=== PATIENT | female | born 1990 | race Two or more races ===

== ENCOUNTER 2025-01-14 22:43 | Emergency (ER) | payer MEDICAID, SELFPAY ==
[2025-01-14 22:43] VITALS: BMI 29.2
[2025-01-14 23:03] VITALS: BP 129/75; PULSE 92; RESP 18; TEMP 36.9; O2SAT 98
--- NOTE | 2025-01-14 23:57 | EDNOTE_ITS ---
Upper Respiratory Inf. RME/HPI General Chief Complaint: Flu Like Symptoms Stated Complaint: COUGH, WHEEZING X1 WEEK Time Seen by Provider: 01/14/25 23:36 Arrival date/time: 01/14/25 22:43 34-year-old female presents to the ED with a complaint of cough with phlegm, unknown color, fever of 100.0 and chills, runny nose and nasal congestion as well as sore throat and pain in her chest with coughing. Symptoms x 1 week. Denies ear pain or sinus pressure/tenderness. She has had a frontal type headache with coughing. Mode of arrival: ambulatory Limitations: no limitations Related Data Home Medications ?Medication ?Instructions ?Recorded ?Confirmed prenat.vits,peg,[id number] 1 tab PO QDAY 05/18/22 02/07/24 albuterol 90 mcg/actuation aerosol 90 mcg inhalation P RN PRN 01/04/24 02/07/24 inhaler Shortness Of Breath Or Wheez ing metformin 500 mg tablet 500 mg PO BID 01/04/2402/06 Previous Rx's ?Medication ?Instructions ?Recorded albuterol sulfate 90 mcg/actuation 2 puff inhalation Q 4H PRN 01/15/25 aerosol inhaler shortness of breath or wheez ing #8.5 grams cetirizine 10 mg tablet (Zyrtec) 10 mg PO QDAY #30 tab s 01/15/25 guaifenesin 1,200 mg tablet, 1,200 mg PO BID #14 tabs 01/15/25 extended release 12 hr (Mucinex) montelukast 10 mg tablet 10 mg PO QPM #30 tabs (Singulair) Allergies Allergy/AdvReac Type Severity Reaction Status Date / Time No Known Allergies Allergy Unknown Verified 02/07/24 01:58 Review of Systems Review of Systems Systems Reviewed: All systems reviewed, normal except as documented Past Medical History Past Medical History NEUROLOGIC: Negative Neurological Disorders or Seizures CARDIAC: Negative Cardiac Disorders or Congestive Heart Failure RESPIRATORY: Positive Asthma (Last inhaler use 6 mos ago); Negative Chronic Obstructive Pulmonary Disease (COPD) GASTROINTESTINAL: Positive Gastrointestinal Disorders, Gall Bladder Disease, Hiatal Hernia and Gastroesophageal Reflux Disease GENITOURINARY: Negative Genitourinary Disorders or Renal Disease REPRODUCTIVE: Positive Previous Pregnancies MUSCULOSKELETAL: Negative Musculoskeletal Disorders ENDOCRINE: Negative Endocrine Disorders, Diabetes Mellitus Type 1 or Diabetes Mellitus Type 2 HEMATOLOGIC: Positive Blood Disorders and Anemia; Negative Clotting Problems OTHER HISTORY: Positive Hospitalization (LABOR, GALL BLADDER) and Chicken Pox; Negative Autoimmune Disease, Shingles, Falls, Blood Transfusions, Blood Transfusion Reaction, Anesthesia Reactions, Chemotherapy, Radiation Therapy, MRSA, Clostridium Difficile or Cancer Family History FAMILY HISTORY: Positive Family Respiratory Disorders (MOTHER ASTHMA), Family Gastrointestinal Problems (MOTHER) and Family Surgery; Negative Family Psychiatric Problems, Family Cardiac Disorders, Family Cancer or Family Anesthesia Reaction Surgical History SURGICAL: Negative Cardiac Surgery, Endocrine Surgery, Ear Surgery, Abdominal Surgery, Joint Replacement, Neurologic Surgery or Section Social History SMOKING STATUS: Never smoker ED Exam Narrative Physical exam: Vital signs stable with a BP 129/75, pulse 92, respirations 18 and nonlabored, temp 98.4, O2 sat 98% on room air. General Limitations: Present no limitations General appearance: Present alert and in no apparent distress Head Head exam: Present atraumatic and normal inspection Eye Eye exam: Present normal appearance; Absent scleral icterus or conjunctival injection ENT ENT exam: Present normal exam Neck Neck exam: Present normal inspection Chest Chest inspection: Present normal inspection Respiratory Respiratory exam: Present other (Rhonchi noted throughout. Diminished at bases.); Absent respiratory distress Cardiovascular Cardiovascular exam: Present regular rate and normal rhythm Abdominal Exam Abdominal exam: Present soft; Absent distention or tenderness Extremities Exam Extremities exam: Present normal inspection Back Exam Back exam: Present full ROM Neurological Exam Neurological exam: Present alert and oriented X3 Psychiatric Psychiatric exam: Present normal affect and normal mood Skin Skin exam: Present warm, dry, intact and normal color Course Course Course Narrative: 34-year-old female presents to the ED with a complaint of cough with phlegm, unknown color, fever of 100.0 and chills, runny nose and nasal congestion as well as sore throat and pain in her chest with coughing. Symptoms x 1 week. Denies ear pain or sinus pressure/tenderness. She has had a frontal type headache with coughing. Exam reveals rhonchi noted throughout, diminished at the bases. Duoneb given. Covid, RSV, Influenza A/B swabs ordered. Quality Measures none Orders Category Date Time Status Bedside COVID-19 Antigen Test NOW Care 01/14/25 23:57 Completed Bedside Influenza A&B Antigen Test NOW Care 01/14/25 23:57 Completed RSV [Respiratory Syncytial Virus Ag] Stat Lab 01/14/25 00:00 Completed Albuterol/Ipratr Rt Catia [Duoneb Rt Catia] Med 01/15/25 01:47 Discontinued 3 ml INH X1 ONE Vital Signs Vital signs: Vital Signs Temperature 98.4 F 01/14/25 23:03 Pulse Rate 92 01/14/25 23:03 Respiratory Rate 18 01/14/25 23:03 Blood Pressure 129/75 01/14/25 23:03 Pulse Oximetry (%) 98 01/14/25 23:03 Oxygen Delivery Method Room Air 01/14/25 23:03 Upper Respiratory Infection MDM Narrative MDM Narrative:: 34-year-old female presents to the ED with a complaint of cough with phlegm, unknown color, fever of 100.0 and chills, runny nose and nasal congestion as well as sore throat and pain in her chest with coughing. Symptoms x 1 week. Denies ear pain or sinus pressure/tenderness. She has had a frontal type headache with coughing. Exam reveals rhonchi noted throughout, diminished at the bases. Duoneb given. Covid, RSV, Influenza A/B swabs ordered. COVID swab is negative, influenza A/B are both positive. Patient data External records reviewed:: None Clinical information provided by:: patient Social determinants that could affect healthcare access:: none Patient has the following chronic illnesses:: N/A How is presenting disease/condition affected by chronic disease/condition?: no chronic disease Evaluation data The following diagnostics were reviewed and interpreted by me:: lab results Lab and/or radiology exams considered but not ordered:: N/A Interpretation Summary: COVID swab is negative, influenza A/B are both positive. Medications / Prescriptions Medications or Prescriptions considered but not ordered:: N/A Medication administrations:: Medication Administration History Discontinued Medications Albuterol/Ipratropium (Albuterol/Ipratropium (Duoneb) Rt Catia 3 Ml Nebu) 3 ml INH X1 ONE Stop: 01/15/25 01:48 Last Admin: 01/15/25 02:12 Dose: 3 ml Documented By: AMBER Montoya Consultations Consultation(s) initiated? (list below): No Diagnosis Upper Respiratory Differential Diagnosis: upper respiratory infection, sinusitis, viral infection, bronchitis, influenza and other (Pneumonia) Most likely diagnosis given after review of the tests above:: Influenza A/B Admission Indicated Admission indicated?: not indicated Explain why admission is indicated or not indicated:: Patient is stable for discharge Admission Request Was there a request for admission?: No Disposition Plan Disposition Plan: Discharge Discharge Attestation Discharge Attestation: The patient and all family members were given an opportunity to ask questions and understood the discharge instructions. Discharge instructions specifically effects, indications for sooner follow up or return to the emergency department, and the expected course of current diagnosis. Patient condition: Stable Discharge Plan Plan Patient Disposition: HOME (Self Care) Discharge Disposition comment: Stable and improved Prescriptions/Referrals Prescriptions/Med Rec: New albuterol sulfate 90 mcg/actuation HFA aerosol inhaler 2 puff inhalation Q4H PRN (Reason: shortness of breath or wheezing) Qty: 8.5 0RF guaifenesin [Mucinex] 1,200 mg tablet extended release 12hr 1,200 mg PO BID Qty: 14 0RF montelukast [Singulair] 10 mg tablet 10 mg PO QPM Qty: 30 0RF cetirizine [Zyrtec] 10 mg tablet 10 mg PO QDAY Qty: 30 0RF No Action Vitamin Tablet 1 tab PO QDAY metformin 500 mg Tablet 500 mg PO BID albuterol 90 mcg/actuation Aerosol 90 mcg INHALATION PRN PRN (Reason: Shortness Of Breath Or Wheezing) Referrals: Gus Adams MD [Primary Care Provider] - In 1 week Problem List Clinical Impression: Influenza A with respiratory manifestations, Influenza due to influenza virus, type B Patient/Caregiver Discharge Instructions Education Materials: The Flu (Influenza), ED Influenza (Adult) Additional Instructions: Follow-up with your primary care physician in 24 to 48 hours. Return to the ED for any new or worsening symptoms. Print Language: Upper Sorbian Stand Alone Forms: [employer] Award Info., Patient Portal Info Letter PA/JORDAN Supervising Physician PA/JORDAN Supervising Physician: Dr Mayorga
[2025-01-15 01:12] LABS: Respiratory Syncytial Virus Ag Negative (Negative)
[2025-01-15 02:12] VITALS: PULSE 89; RESP 20; O2SAT 99
[2025-01-15] MEDS: ALBUTEROL/IPRATROPIUM (Duoneb) RT SOL 3 ML NEBU INH (02:12)
== END 2025-01-15 02:41 | disposition home or self-care (01) ==
PROVIDERS: Physician Assistant; Emergency Provider Emergency Medicine; PCP Family Medicine
DX: R05.9 Cough, unspecified (principal)
CPT/HCPCS: 87400; 87634; 87811; 94640; 99283; A9270

== ENCOUNTER 2025-03-18 10:38 | Outpatient (AMB) | payer MEDICAID, SELFPAY ==
[2025-03-18 10:52] VITALS: BP 120/86; PULSE 64; RESP 17; TEMP 36.7; O2SAT 98; BMI 29.1
--- NOTE | 2025-03-18 10:52 | AMB.GYNCLNOT ---
Vital Signs 03/18/25 10:52 Height 1.57 m Height Method Stated Weight 72.235 kg Weight Measurement Method Standing Scale BMI 29.1 BP 120/86 H Blood Pressure Source Automatic Cuff Blood Pressure Location Right Upper Arm Position Sitting Respiration 17 Pulse 64 Pulse Source Monitor Temp 98.1 F Temp Source Temporal Artery Scan Pulse Oximetry (%) 98 Oxygen Delivery Method Room Air Allergies/Home Meds Allergies & Medications Allergies No Known Allergies Allergy (Unknown, Verified 03/18/25 10:53) Intake Visit Data Collection New Patient or Established: Established Patient (seen at 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 regularity: irregular Flow: normal Monthly: Yes How many days does period last: 5 Menopausal: No Currently sexually 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 1. Little interest or pleasure in doing things: not at all 2. Feeling down, depressed, or hopeless: not at all Total score: 0 PHQ-9 3. Trouble falling or staying asleep, or sleeping too much: Not at all 4. Feeling tired or having little energy: Not at all 5. Poor appetite or overeating: Not at all 6. Feeling bad about yourself - or that you are a failure or have let yourself or your family down: Not at all 7. Trouble concentrating on things, such as reading the newspaper or watching television: Not at all 8. Moving or speaking so slowly that other people could have noticed? - Or the opposite - being so fidgety or restless that you have been moving around a lot more than usual: not at all 9. Thoughts that you would be better off or of hurting yourself in some way: Not at all Total score: 0 If you checked off any problems, how difficult have these problems made it for you to do your work, take care of things at home, or get along with other people?: not difficult at all Source: Developed by Drs. Wiliam Lu, Sofia Sanchez, Jerry Nix and colleagues, with an educational bette from [employer]. Depression screen completed yes Social History Living Situation History Marital Status: Life Partner Housing: House Tobacco History Smoking Status: Never smoker Alcohol History Alcohol Intake: Never Domestic Abuse History Do You Feel Safe at Home: Yes History of Present Illness HPI Narrative 34-year-old 4 para 4 for ER follow-up. Patient reports she had gone to [facility] ER March 16 because of vaginal bleeding. Her last period February 12, 2025. March 09 she started spotting which is irregular for her. When the bleeding got heavier she did a test and it was positive so she went to [facility] for evaluation and possible miscarriage. Patient reports that her menses are normally irregular but she has them every month. Recently had her Nexplanon taken out in November. No contraception. This is an unplanned . Patient reports slight nausea but no other first trimester discomforts of . No complaints of cramping or pain. Patient denies any existence of chronic illnesses. History of diabetes with her last . She denies social habits. She had a lap santos 2018. Patient reports that the ER doctor told her her hCG on 615 was 88 Review of Systems Review of Systems Systems Reviewed: All systems reviewed, normal except as documented Exam General Limitations: no limitations General Appearance: alert, in no apparent distress, comfortable, cooperative, healthy appearing, well developed and well groomed Resp Respiratory exam: Present normal lung sounds bilaterally Card Cardiovascular exam: Present regular rate, normal rhythm and normal heart sounds Abdominal Abdominal exam: Present soft and normal bowel sounds Psych Psychiatric exam: Present normal affect and normal mood Office Procedures OB Clinic LOC & Office Proc's Nursing/Assessment Patient Status: Established Patient OB Clinic Nursing Assessment: Medication Reconciliation, Update PMH in EMR and Vital Signs OB Clinic Coordination of Care: Complex Care and Chronic Disease 1-5, Consent,records obtained, informed consent, Education Simp Pt/Fam, Lab and Imaging orders, Results/Orders obtained and Staff clarify orders Established Patient Charge Established Patient Point Assignment: 105 Established Patient Point Charge: EP Level 3 (80-115) Assessment & Plan Diagnosis / Problem List (1) , spontaneous incomplete: Status: Acute Plan HCGx2, type and rh. ob sono with vag probe, discuss sab precaution and ER precaution, rest. rtc 2 week for results Additional Plan Follow Up: 2 Weeks (ER f/u and labs)
== END 2025-03-18 11:08 | disposition home or self-care (01) ==
LOC: HODSOBC 10:38
PROVIDERS: Supervising Provider Advanced Practice Midwife; Visit Provider Advanced Practice Midwife
DX: O03.4 Incomplete spontaneous abortion without complication (principal)
CPT/HCPCS: 99213; G0463

== ENCOUNTER 2025-03-25 09:10 | Outpatient (AMB) | payer MEDICAID, SELFPAY ==
--- NOTE | 2025-03-25 09:26 | GYNCLNT_ITS ---
Vital Signs 03/25/25 09:27 Height 1.57 m Height Method Stated Weight 72.235 kg Weight Measurement Method Standing Scale BMI 29.2 BP 109/74 Blood Pressure Source Automatic Cuff Blood Pressure Location Right Upper Arm Position Sitting Respiration 17 Pulse 67 Pulse Source Monitor Temp 98.0 F Temp Source Temporal Artery Scan Pulse Oximetry (%) 98 Oxygen Delivery Method Room Air Allergies/Home Meds Allergies & Medications Allergies No Known Allergies Allergy (Unknown, Verified 03/25/25 09:27) Medication Reconciliation No Known Home Medications 03/25/25 [History Confirmed 03/25/25] Intake Visit Data Collection New Patient or Established: Established Patient (seen at [facility] within 3 years) Reason for Visit:: LAB RESULTS Seen by Clinical Staff ONLY (RN/MA): No Credit Underwriter Required: No Do You Feel Safe at Home: Yes Authorities Contacted: N/A PCP or OBGYN visit in last 3 months: Yes Date of Last PCP or OBGYN visit: 03/18/25 Hx Now: No Are you currently on any form of Control: No Pain Present Currently: No Pain Scale Used: Verma-Velasquez/Numerical Pain scale:: 0 Smoking Status Smoking Status: Never smoker 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 Menstrual regularity: irregular Flow: normal Monthly: Yes How many days does period last: 5 Age at menarche: 12 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 1. Little interest or pleasure in doing things: not at all 2. Feeling down, depressed, or hopeless: not at all Total score: 0 PHQ-9 3. Trouble falling or staying asleep, or sleeping too much: Not at all 4. Feeling tired or having little energy: Not at all 5. Poor appetite or overeating: Not at all 6. Feeling bad about yourself - or that you are a failure or have let yourself or your family down: Not at all 7. Trouble concentrating on things, such as reading the newspaper or watching television: Not at all 8. Moving or speaking so slowly that other people could have noticed? - Or the opposite - being so fidgety or restless that you have been moving around a lot more than usual: not at all 9. Thoughts that you would be better off or of hurting yourself in some way: Not at all Total score: 0 If you checked off any problems, how difficult have these problems made it for you to do your work, take care of things at home, or get along with other people?: not difficult at all Source: Developed by Drs. Wiliam Lu, Sofia Sanchez, Jerry Nix and colleagues, with an educational bette from [employer]. Depression screen completed yes Social History Living Situation History Marital Status: Lives With: Family Housing: House Tobacco History Smoking Status: Never smoker Alcohol History Alcohol Intake: Never Domestic Abuse History Do You Feel Safe at Home: Yes History of Present Illness HPI Narrative Patient reports experiencing vaginal bleeding, which led to an emergency room visit on March 16, 2025. She had taken a home test prior to the ER visit, which was positive. This was unplanned. The patient mentions that her Nexplanon was removed in November, and her last menstrual period was on February 12, 2025. She was recommended to return for further evaluation, including a transvaginal ultrasound. She is a 34-year-old female with a history of 4 pregnancies and 4 deliveries (). The patient was evaluated at an outside facility during her ER visit, but the records were not immediately available at that time. She has a history of using Nexplanon for contraception, which was removed in November 2024. The patient has 4 children. Exam General General Appearance: alert, in no apparent distress and healthy appearing Head Head exam: atraumatic Neck Neck exam: Present normal inspection and trachea midline Chest Chest inspection: Present normal inspection and symmetric chest wall rise External exam: Present normal external exam; Absent tenderness Neuro Neurological exam: Present oriented X3 Psych Psychiatric exam: Present normal affect and normal mood Office Procedures OB Clinic LOC & Office Proc's Nursing/Assessment Patient Status: Established Patient OB Clinic Nursing Assessment: Medication Reconciliation, Update PMH in EMR and Vital Signs OB Clinic Coordination of Care: Complex Care and Chronic Disease 1-5, Consent,records obtained, informed consent, Education Simp Pt/Fam, Results/Orders obtained and Staff clarify orders Established Patient Charge Established Patient Point Assignment: 90 Established Patient Point Charge: EP Level 3 (80-115) Assessment & Plan Diagnosis / Problem List (1) , spontaneous incomplete: Status: Acute Plan Diagnostic Test Results and Labs: - Home test (03/16/2025): Positive - Serum HCG (03/19/2025): 20-3 - Serum HCG (03/25/2025): <1 (negative) Possible Early Loss Plan: - Review serum hCG results with patient. - Discuss implications of declining hCG levels. - Recommend follow-up as needed for any ongoing concerns. Assessment: - ER visit on March 16, 2025, for vaginal bleeding with positive home test. - Last menstrual period: February 12, 2025. - Nexplanon removed in November, unplanned . - Initial serum hCG on March 19, 2025: 20-3. - Repeat hCG on March 25, 2025: negative (less than 1). - Declining hCG levels suggest possible early loss.
[2025-03-25 09:27] VITALS: BP 109/74; PULSE 67; RESP 17; TEMP 36.7; O2SAT 98; BMI 29.2
== END 2025-03-25 10:15 | disposition home or self-care (01) ==
LOC: HODSOBC 09:10
PROVIDERS: PCP Obstetrics & Gynecology; Referring Provider Obstetrics & Gynecology; Supervising Provider Obstetrics & Gynecology; Visit Provider Obstetrics & Gynecology
DX: O03.4 Incomplete spontaneous abortion without complication (principal)
CPT/HCPCS: 99213; G0463

== ENCOUNTER 2025-07-03 11:00 | Outpatient (AMB) | payer MEDICAID, SELFPAY ==
[2025-07-03 11:17] VITALS: BP 115/70; PULSE 70; RESP 14; TEMP 36.3; O2SAT 99; BMI 29.5
--- NOTE | 2025-07-03 11:17 | AMB.GYNCLNOT ---
Vital Signs 07/03/25 11:17 Height 1.57 m Height Method Stated Weight 73.198 kg Weight Measurement Method Standing Scale BMI 29.5 BP 115/70 Blood Pressure Source Automatic Cuff Blood Pressure Location Left Upper Arm Position Sitting Respiration 14 Pulse 70 Pulse Source Monitor Temp 97.3 F Temp Source Oral Pulse Oximetry (%) 99 Oxygen Delivery Method Room Air Allergies/Home Meds Allergies & Medications Allergies No Known Allergies Allergy (Unknown, Verified 07/03/25 11:18) Medication Reconciliation doxylamine 10 mg-pyridoxine (vit B6) 10 mg tablet,delayed release (Diclegis) 1 tab PO BID 30 days #60 tabs 07/03/25 [Rx] Intake Visit Data Collection New Patient or Established: Established Patient (seen at [facility] within 3 years) Reason for Visit:: TEST Seen by Clinical Staff ONLY (RN/MA): No Parking 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: No Do You Feel Safe at Home: Yes Authorities Contacted: N/A PCP or OBGYN visit in last 3 months: Yes Hx Now: Yes Are you currently on any form of Control: No Last menstrual period: 05/10/25 Pain Present Currently: No Pain Scale Used: Verma-Velasquez/Numerical Pain scale:: 0 Smoking Status Smoking Status: Never smoker 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 Menstrual regularity: irregular Flow: normal Monthly: Yes How many days does period last: 7 Age at menarche: 12 Currently sexually active: Yes 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 1. Little interest or pleasure in doing things: not at all 2. Feeling down, depressed, or hopeless: not at all Total score: 0 PHQ-9 3. Trouble falling or staying asleep, or sleeping too much: Not at all 4. Feeling tired or having little energy: Not at all 5. Poor appetite or overeating: Not at all 6. Feeling bad about yourself - or that you are a failure or have let yourself or your family down: Not at all 7. Trouble concentrating on things, such as reading the newspaper or watching television: Not at all 8. Moving or speaking so slowly that other people could have noticed? - Or the opposite - being so fidgety or restless that you have been moving around a lot more than usual: not at all 9. Thoughts that you would be better off or of hurting yourself in some way: Not at all Total score: 0 Source: Developed by Drs. Wiliam Lu, Sofia Sanchez, Jerry Nix and colleagues, with an educational bette from [employer]. Depression screen completed yes Social History Living Situation History Lives With: Family Housing: House Tobacco History Smoking Status: Never smoker Second Hand Smoke Exposure: No Alcohol History Alcohol Intake: Never Domestic Abuse History Do You Feel Safe at Home: Yes History of Present Illness HPI Narrative 35-year-old 6 para 4 for test. Patient had a positive test at home and she is here in the office to establish care. Her last period May 10, 2025. Patient recently had a miscarriage in March. Her EDC based on May 10 is January. Patient is 7 weeks 6 days. She complains of some nausea and vomiting. Denies any leaking, bleeding at this time she is having some cramps. Her first patient had hypertension after delivery. And then the second patient had GDM/diet. Patient denies social habits. History of asthma and patient uses an inhaler when she feels out of breath. And she had a lap santos. Her and her partner are both happy about the . Results Objective Laboratory: + preg test Imaging: + cardiac motion on sono Office Procedures OBC Clinic LOC & Office Proc's Nursing/Assessment Patient Status: Established Patient OB Clinic Nursing Assessment: Medication Reconciliation, Update PMH in EMR and Vital Signs OB Clinic Coordination of Care: Complex Care and Chronic Disease 1-5, Consent,records obtained, informed consent, Education Simp Pt/Fam, Lab and Imaging orders, Results/Orders obtained and Staff clarify orders Special Needs: Heart tones Miscellaneous Interventions: Blood/Urine Collection Established Patient Charge Established Patient Point Assignment: 165 Established Patient Point Charge: EP Level 5 (160-above) In Clinic Bedside tests/procedures Bedside HCG: Yes Results Urine HCG Urine HCG Positive Last Edit by Nilda Worrell MA on 07/03/25 11:23 Assessment & Plan Diagnosis / Problem List (1) Encounter for test, result positive: Status: Acute Plan Schedule ultrasound for dating and NT scan because of AMA with Dr. Aguilar. Discussed SAB precautions. We did OB panel today with beta-hCG, TSH, CMP. Diclegis twice a day for the nausea. The patient will continue vitamins. And return for OBI in 3 weeks.. Additional Plan Follow Up: 2 Weeks (obi)
== END 2025-07-03 11:39 | disposition home or self-care (01) ==
LOC: HODSOBC 11:00
PROVIDERS: PCP Obstetrics & Gynecology; Referring Provider Obstetrics & Gynecology; Supervising Provider Advanced Practice Midwife; Visit Provider Advanced Practice Midwife
DX: Z32.01 Encounter for pregnancy test, result positive (principal)
CPT/HCPCS: 81025; 99215; G0463

== ENCOUNTER 2025-07-16 14:54 | Outpatient (AMB) | payer MEDICAID, SELFPAY ==
--- NOTE | 2025-07-16 14:59 | AMB.OBVISIT ---
Vital Signs 07/16/25 15:00 Height 1.57 m Height Method Stated Weight 74.389 kg Weight Measurement Method Standing Scale BMI 30.2 BP 110/71 Blood Pressure Source Automatic Cuff Blood Pressure Location Right Upper Arm Position Sitting Respiration 17 Pulse 73 Pulse Source Monitor Temp 98.1 F Temp Source Temporal Artery Scan Pulse Oximetry (%) 99 Oxygen Delivery Method Room Air Allergies/Home Meds Allergies & Medications Allergies No Known Allergies Allergy (Unknown, Verified 07/16/25 14:59) Medication Reconciliation doxylamine 10 mg-pyridoxine (vit B6) 10 mg tablet,delayed release (Diclegis) 1 tab PO BID 30 days #60 tabs 07/03/25 [Rx Confirmed 07/16/25] Intake Visit Data Collection New Patient or Established: Established Patient (seen at [facility] within 3 years) Reason for Visit:: OBC Seen by Clinical Staff ONLY (RN/MA): No 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 1. Little interest or pleasure in doing things: not at all 2. Feeling down, depressed, or hopeless: not at all Total score: 0 PHQ-9 3. Trouble falling or staying asleep, or sleeping too much: Not at all 4. Feeling tired or having little energy: Not at all 5. Poor appetite or overeating: Not at all 6. Feeling bad about yourself - or that you are a failure or have let yourself or your family down: Not at all 7. Trouble concentrating on things, such as reading the newspaper or watching television: Not at all 8. Moving or speaking so slowly that other people could have noticed? - Or the opposite - being so fidgety or restless that you have been moving around a lot more than usual: not at all 9. Thoughts that you would be better off or of hurting yourself in some way: Not at all Total score: 0 If you checked off any problems, how difficult have these problems made it for you to do your work, take care of things at home, or get along with other people?: not difficult at all Source: Developed by Drs. Wiliam uL, Sofia Sanchez, Jerry Nix and colleagues, with an educational bette from [employer]. 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 Denies any SAB complaints. Patient has an MFM appointment that is pending. Denies nausea and vomiting. No bleeding NIPT and carrier screen today. Will do AFP at 15 weeks. An MFM appointment is pending. Discussed SAB precautions ALBA Calculator Estimated Delivery Date Method Current WG Current Estimate 02/14/26 LMP (Certain) 9w 4d Notes Visit Date: 07/16/25 Last Updated by: Paty Card CNM 35 yo . LMP: 05/10/25, EDC: 02/14/26 Office Procedures OBC Clinic LOC & Office Proc's Nursing/Assessment Patient Status: Established Patient OB Clinic Nursing Assessment: Medication Reconciliation, Update PMH in EMR and Vital Signs OB Clinic Coordination of Care: Complex Care and Chronic Disease 1-5, Education Complex Pt/Fam, Consent,records obtained, informed consent and Staff clarify orders Special Needs: Heart tones Established Patient Charge Established Patient Point Assignment: 120 Established Patient Point Charge: EP Level 4 (120-155) Assessment & Plan Diagnosis / Problem List (1) Encounter for supervision of high risk in first trimester, antepartum: Status: Acute Plan OB panel was done today. NIPT and carrier screen today. MFM appointment is pending. Discussed SAB precautions. Increase fluids. Continue prenatals. Return in 4 weeks OB check Additional Plan Follow Up: 4 Weeks (obc)
[2025-07-16 15:00] VITALS: BP 110/71; PULSE 73; RESP 17; TEMP 36.7; O2SAT 99; BMI 30.2
== END 2025-07-16 15:29 | disposition home or self-care (01) ==
LOC: HODSOBC 14:54
PROVIDERS: Supervising Provider Advanced Practice Midwife; Visit Provider Advanced Practice Midwife
DX: O09.521 Supervision of elderly multigravida, first trimester (principal); Z3A.09 9 weeks gestation of pregnancy
CPT/HCPCS: 99214; G0463

== ENCOUNTER 2025-07-17 17:33 | Emergency (ER) | payer MEDICAID, SELFPAY ==
[2025-07-17 17:42] VITALS: BP 121/81; PULSE 85; RESP 18; TEMP 37.1; O2SAT 98; BMI 30.6
--- NOTE | 2025-07-17 17:52 | XR_ITS ---
Examination: Complete OB ultrasound, less than 14 weeks, transabdominal Date and time of exam: July 17, 2025, 1803 hours INDICATIONS: Onset pelvic pain radiating to the back today Technique: Obstetrical ultrasound images less than 14 weeks performed via transabdominal imaging Findings: A normal shaped single intrauterine gestation is present in the uterus. Uterus 12.8 cm CRL 3.5 cm corresponds to 10 weeks 3 days gestational age Cardiac motion 167 bpm Subchorionic hemorrhage 40 x 42 mm Right ovary obscured by bowel gas Left ovary 4.1 cm arterial flow 19 mm corpus luteum cyst Ultrasonographic survey of visible structures unremarkable. Amniotic fluid volume appears appropriate for this estimated gestational age. Impression: Viable intrauterine gestation 10 weeks 3 days, recommend short-term follow-up study given the large subchorionic hemorrhage.
--- NOTE | 2025-07-17 17:52 | PD.EDRME ---
Rapid Medical Screening Exam RME Arrival date/time: 07/17/25 17:33 35-year-old female G6, presents to the Emergency Department for complaints of back pain and pelvic cramping Chief Complaint: Urogenital-Female Vital signs: Vital Signs Temperature 98.7 F 07/17/25 17:42 Pulse Rate 85 07/17/25 17:42 Respiratory Rate 18 07/17/25 17:42 Blood Pressure 121/81 07/17/25 17:42 Pulse Oximetry (%) 98 07/17/25 17:42 Oxygen Delivery Method Room Air 07/17/25 17:42
[2025-07-17 18:10] LABS: Basophils # (Auto) 0.0 Thou/mm3 (0.0-0.2); Basophils % (Auto) 0 % (0-2.5); Eosinophils # (Auto) 0.1 Thou/mm3 (0.0-0.5); Eosinophils % (Auto) 2 % (0-10); Hematocrit 35.9 % (36.0-46.0); Hemoglobin 12.5 g/dL (12.0-16.0); Immature Granulocytes Auto 0.02 Thou/mm3 (0.00-0.00); Lymphocytes # (Auto) 1.8 Thou/mm3 (1.0-4.8); Lymphocytes % (Auto) 24 % (10-50); Mean Corpuscular HGB Conc 34.8 g/dl (31.0-37.0); Mean Corpuscular Hemoglobin 29.8 pg (25.0-35.0); Mean Corpuscular Volume 86 fL (80-100); Monocytes # (Auto) 0.6 Thou/mm3 (0.0-0.8); Monocytes % (Auto) 9 % (0-12); Neutrophils # (Auto) 4.8 Thou/mm3 (1.8-7.7); Neutrophils % (Auto) 65 % (37-80); Nucleated Red Blood Cell # 0.00 Thou/mm3 (0.00-0.00); Nucleated Red Blood Cell % 0 /100 WBC (0); Platelet Count 169 Thou/mm3 (140-440); RDW Standard Deviation 44.2 fL (36.4-46.3); Red Blood Count 4.19 Miln/mm3 (4.00-5.20); White Blood Count 7.4 Thou/mm3 (3.6-11.0)
[2025-07-17 18:31] LABS: Alanine Aminotransferase 12 U/L (10-49); Albumin, Serum 4.1 gm/dL (3.5-5.0); Albumin/Globulin Ratio 1.9 (1.2-2.2); Alkaline Phosphatase 63 U/L (46-116); Anion Gap 10 (7-16); Aspartate Amino Transferase 17 U/L (0-34); BUN/Creatinine Ratio 13 Ratio (12-20); Bilirubin,Total 0.5 mg/dL (0.3-1.2); Blood Urea Nitrogen 9 mg/dL (9-23); Calcium 8.9 mg/dL (8.3-10.6); Calcium (Corrected) 8.9 mg/dL (8.5-10.1); Carbon Dioxide 24.3 mMol/L (20.0-31.0); Chloride 105 mMol/L (98-107); Creatinine (Component) 0.7 mg/dL (0.6-1.3); Estimated Creatinine Clearance 105.9 mL/min (>60); Globulin 2.2 gm/dL (2.3-3.5); Glucose 93 mg/dL (74-106); Osmolality,Calculated 276 (275-295); Potassium 3.6 mMol/L (3.4-5.1); Sodium 139 mMol/L (136-145); Total Protein 6.3 gm/dL (5.7-8.2); eGFR > 60 See Note
[2025-07-17 18:45] LABS: Collection Type, Urine Clean Catch
[2025-07-17 18:51] LABS: Bilirubin,Urine Negative (Negative); Blood,Urine Negative (Negative); Clarity,Urine Clear (Clear/Hazy); Color,Urine Lt-Yellow (Lt Yel-Yel); Glucose, Urine Negative (Negative); Ketones,Urine Trace (Negative); Leukocyte Esterase,Urine Positive (Negative); Nitrite,Urine Negative (Negative); PH,Urine 6.0 (5.0-7.0); Protein,Urine Negative (Neg - Trace); RBC,Urine 7 /hpf (0-3); Specific Gravity,Urine 1.030 (1.001-1.035); Squamous Epithelial Cell,Urine 3 /hpf (0-5); Urobilinogen,Urine Negative mg/dL (0.0-1.0); WBC,Urine 2 /hpf (0-5)
[2025-07-17 19:13] LABS: Beta HCG,Quantitative 67231 mIU/mL (<5.0)
[2025-07-17 19:50] VITALS: BP 122/79; PULSE 82; RESP 18; TEMP 36.8; O2SAT 99
--- NOTE | 2025-07-17 20:20 | EDNOTE_ITS ---
ED General RME/HPI General Chief complaint: Urogenital-Female Stated complaint: N/V FLANK PAIN SINCETHIS AM, 10 WEEKS Time Seen by Provider: 07/17/25 20:04 Arrival date/time: 07/17/25 17:33 CC: Low back pain worse when he bends over HPI onset this morning denies blunt trauma or repetitive motion. He is currently a at 10 weeks gestation. Denies vaginal discharge vaginal bleeding painful urination bloody urination or inability to urinate. Took Tylenol at 10 AM without relief. RME / HPI RME / HPI narrative: 07/17/25 17:33 35-year-old female G6, presents to the Emergency Department for complaints of back pain and pelvic cramping Related Data Previous Rx's ?Medication ?Instructions ?Recorded doxylamine 10 mg-pyridoxine (vit 1 tab PO BID 30 days #60 tabs 07/03/25 B6) 10 mg tablet,delayed release (Diclegis) Allergies Allergy/AdvReac Type Severity Reaction Status Date / Time No Known Allergies Allergy Unknown Verified 07/17/25 17:35 Review of Systems Review of Systems Narrative Review of Systems: [General: Not in any acute distress Head normocephalic HEENT: Within acceptable limits Neck is supple nontender Chest equal chest rise nontender to palpation Respiratory: Clear to auscultation no wheezes crackles or rubs CV: Rate rhythm is regular no murmurs rubs or clicks Abdomen is distended secondary to body habitus soft nontender no masses positive bowel sounds all 4 quadrants Back: No CVA tenderness no spinous process tenderness from cervical spine thoracic and lumbar spine Skin: Intact no petechiae rash induration ulceration or crepitus Extremities: Moving all extremity against resistance cap refill less than 2 seconds neurosensory intact Neuro: Awake alert oriented x3 Glascow coma 15 no focal deficits] Course Course Course Narrative: Patient's case clinical condition laboratory results and ultrasound were discussed with Dr. Edwards, who states the patient is to avoid all lifting heavy activity no intercourse orgasms no placing any foreign objects in the vagina or the rectum. And she is to follow-up promptly. Patient is in agreement with these instructions. Quality Measures none Orders Category Date Time Status US OB <= 14 weeks fetus Stat Exams 07/17/25 17:52 Completed ABO/RH Type Stat Lab 07/17/25 18:00 Completed Beta HCG,Quantitative Stat Lab 07/17/25 18:00 Completed CBC Stat Lab 07/17/25 18:00 Completed Comprehensive Metabolic Panel Stat Lab 07/17/25 18:00 Completed UA [Urinalysis] Stat Lab 07/17/25 18:37 Completed Urine Culture Stat Lab 07/17/25 18:37 Received Acetaminophen Tab [Tylenol Tab] Med 07/17/25 20:19 Discontinued 650 mg PO X1 ONE Vital Signs Vital signs: Vital Signs Temperature 98.7 F 07/17/25 17:42 Pulse Rate 85 07/17/25 17:42 Respiratory Rate 18 07/17/25 17:42 Blood Pressure 121/81 07/17/25 17:42 Pulse Oximetry (%) 98 07/17/25 17:42 Oxygen Delivery Method Room Air 07/17/25 17:42 Discharge Plan Plan Patient Disposition: HOME (Self Care) Patient condition on transfer: Stable Prescriptions/Referrals Prescriptions/Med Rec: No Action doxylamine-pyridoxine (vit B6) [Diclegis] 10-10 mg tablet,delayed release (DR/EC) 1 tab PO BID 30 Days Qty: 60 2RF Referrals: No Primary/Family,Physician [Primary Care Provider] - In 1 week Problem List Clinical Impression: Back pain, , Subchorionic hemorrhage Patient/Caregiver Discharge Instructions Other Activity Instructions:: Avoid all heavy lifting heavy activity do not have intercourse do not have an orgasm, do not place any objects in your vagina or your rectum. Rest, no heavy activity. Follow-up promptly with your OIL FIELD TESTER. If it anytime there is heavy abdominal cramping or heavy bleeding return to the emergency room for reevaluation. Education Materials: First Trimester, Bleeding During Early , ED Back Pain (Acute or Chronic) Print Language: Greenlandic Stand Alone Forms: Norma Award Info., Work/School Release, Patient Portal Info Letter AURELIO/JORDAN Supervising Physician AURELIO/JORDAN Supervising Physician: Mohamud Andino ENP [facility] Clinical Information Provided by: patient Medical Records reviewed [facility] Meds/Rx considered, not ordered None Labs/Rad/Tests considered, not ordered None Chronic Illness/Social Conditions Explain: EKG EKG not done Labs Labs: interpreted by sd Lab(s) Interpretation(s): CBC shows no acute leukocytosis anemia thrombocytopenia CMP shows no significant electrolyte imbalances renal impairment transaminitis or T. bili elevation Beta quant at 67,231 Urine shows leukocyte esterase +7 RBCs 2 WBCs 3 squamous epithelia no bacteria. Imaging Imaging interpretation: interpreted by me Imaging Interpretation(s): Ultrasound shows a single gestation at 10 weeks 3 days with heart tones in the 160s there is also a subchorionic bleed at 40 x 42 mm. Medication Administration(s) Medication Administration History Discontinued Medications Acetaminophen (Acetaminophen 325 Mg Tablet) 650 mg PO X1 ONE Stop: 07/17/25 20:20 Last Admin: 07/17/25 21:07 Dose: 650 mg Documented By: SF
[2025-07-17] MEDS: ACETAMINOPHEN 325 MG TABLET 650 MG PO (21:07)
[2025-07-17 21:43] VITALS: BP 138/72; PULSE 75; RESP 16; TEMP 36.8; O2SAT 98
== END 2025-07-17 21:45 | disposition home or self-care (01) ==
PROVIDERS: Nurse Practitioner Primary Care; Emergency Provider Emergency Medicine
DX: O20.8 Other hemorrhage in early pregnancy (principal); O21.9 Vomiting of pregnancy, unspecified; O09.521 Supervision of elderly multigravida, first trimester; Z3A.10 10 weeks gestation of pregnancy
CPT/HCPCS: 36415; 76801; 80053; 81001; 84702; 85025; 86900; 86901; 87086; 99283; A9270

== ENCOUNTER 2025-07-18 14:58 | Outpatient (AMB) | payer MEDICAID, SELFPAY ==
--- NOTE | 2025-07-18 15:04 | AMB.OBVISIT ---
Vital Signs 07/18/25 15:06 Height 1.57 m Height Method Stated Weight 73.539 kg Weight Measurement Method Standing Scale BMI 29.8 BP 135/82 H Blood Pressure Source Automatic Cuff Blood Pressure Location Left Upper Arm Position Sitting Respiration 18 Pulse 88 Pulse Source Monitor Temp 97.2 F Temp Source Oral Pulse Oximetry (%) 98 Oxygen Delivery Method Room Air Allergies/Home Meds Allergies & Medications Allergies No Known Allergies Allergy (Unknown, Verified 07/18/25 15:07) Medication Reconciliation doxylamine 10 mg-pyridoxine (vit B6) 10 mg tablet,delayed release (Diclegis) 1 tab PO BID 30 days #60 tabs 07/03/25 [Rx Confirmed 07/18/25] cephalexin 500 mg capsule 500 mg PO Q6H 7 days #28 caps 07/18/25 [Rx] Intake Visit Data Collection New Patient or Established: Established Patient (seen at [facility] within 3 years) Reason for Visit:: OBC Seen by Clinical Staff ONLY (RN/MA): No 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 1. Little interest or pleasure in doing things: not at all PHQ-9 3. Trouble falling or staying asleep, or sleeping too much: Not at all 4. Feeling tired or having little energy: Not at all 5. Poor appetite or overeating: Not at all 6. Feeling bad about yourself - or that you are a failure or have let yourself or your family down: Not at all 7. Trouble concentrating on things, such as reading the newspaper or watching television: Not at all 8. Moving or speaking so slowly that other people could have noticed? - Or the opposite - being so fidgety or restless that you have been moving around a lot more than usual: not at all 9. Thoughts that you would be better off or of hurting yourself in some way: Not at all If you checked off any problems, how difficult have these problems made it for you to do your work, take care of things at home, or get along with other people?: not difficult at all Source: Developed by Drs. Wiliam Lu, Sofia Sanchez, Jerry Nix and colleagues, with an educational bette from [employer]. 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 Denies any SAB complaints. Patient has an MFM appointment that is pending. Denies nausea and vomiting. No bleeding NIPT and carrier screen today. Will do AFP at 15 weeks. An MFM appointment is pending. Discussed SAB precautions 07/18/25 <del>?</del> 9w 6d 73.539 kg 135/82 10 145 ALBA Calculator Estimated Delivery Date Method Current WG Current Estimate 02/14/26 LMP (Certain) 9w 6d Other Estimates 02/09/26 Ultrasound #1 10w 4d Notes Visit Date: 07/18/25 Last Updated by: Dulce Carolina MD US on 07/17/2025 c/w 10.3 weeks with a subchorionic hematoma of 40 x42 mm no more bleeding now Plan a follow up Ob us / keep Follow up with Paty / Marisela positive on bedside US Call in Keflex for UTI symptoms / restricted activity/ ED precautions / High risk due to subchrionic bleed Visit Date: 07/16/25 Last Updated by: Paty Card, LUISA 35 yo . LMP: 05/10/25, EDC: 02/14/26 Office Procedures OBC Clinic LOC & Office Proc's Nursing/Assessment Patient Status: Established Patient OB Clinic Nursing Assessment: Medication Reconciliation, Update PMH in EMR and Vital Signs OB Clinic Coordination of Care: Consent,records obtained, informed consent, Education Simp Pt/Fam, Lab and Imaging orders, Results/Orders obtained and Staff clarify orders Special Needs: Heart tones Established Patient Charge Established Patient Point Assignment: 110 Established Patient Point Charge: EP Level 3 (80-115) Assessment & Plan Diagnosis / Problem List (1) Subchorionic hemorrhage: Status: Acute Plan: High risk restricted activity follow up US and ED precautions Keep follow up with Paty (2) : Status: Acute (3) Back pain: Status: Acute (4) Encounter for supervision of high risk in first trimester, antepartum: Status: Acute (5) Advanced maternal age (AMA) in : Status: Acute (6) Threatened : Status: Acute (7) UTI (urinary tract infection): Status: Acute Plan: called in Keflex and adequate hydration
[2025-07-18 15:06] VITALS: BP 135/82; PULSE 88; RESP 18; TEMP 36.2; O2SAT 98; BMI 29.8
== END 2025-07-18 15:14 | disposition home or self-care (01) ==
LOC: HODSOBC 14:58
PROVIDERS: Supervising Provider Obstetrics & Gynecology; Visit Provider Obstetrics & Gynecology
DX: O09.521 Supervision of elderly multigravida, first trimester (principal); O09.891 Supervision of other high risk pregnancies, first trimester; O46.8X1 Other antepartum hemorrhage, first trimester; O23.41 Unspecified infection of urinary tract in pregnancy, first trimester; Z3A.10 10 weeks gestation of pregnancy
CPT/HCPCS: 99213; G0463

== ENCOUNTER 2025-08-04 08:36 | Outpatient (AMB) | payer MEDICAID, SELFPAY ==
[2025-08-04 08:45] VITALS: BP 125/82; PULSE 94; RESP 18; TEMP 36.2; O2SAT 98; BMI 31.1
--- NOTE | 2025-08-04 08:45 | AMB.OBVISIT ---
Vital Signs 08/04/25 08:45 Height 1.57 m Height Method Stated Weight 76.714 kg Weight Measurement Method Standing Scale BMI 31.1 BP 125/82 Blood Pressure Source Automatic Cuff Blood Pressure Location Left Upper Arm Position Sitting Respiration 18 Pulse 94 Pulse Source Monitor Temp 97.2 F Temp Source Oral Pulse Oximetry (%) 98 Oxygen Delivery Method Room Air Allergies/Home Meds Allergies & Medications Allergies No Known Allergies Allergy (Unknown, Verified 08/04/25 08:45) Medication Reconciliation doxylamine 10 mg-pyridoxine (vit B6) 10 mg tablet,delayed release (Diclegis) 1 tab PO BID 30 days #60 tabs 07/03/25 [Rx Confirmed 08/04/25] clotrimazole 1 % vaginal cream (Gyne-Lotrimin 7) 1 appful vaginal QHS #45 grams 08/04/25 [Rx] Intake Visit Data Collection New Patient or Established: Established Patient (seen at [facility] within 3 years) Reason for Visit:: OBC Seen by Clinical Staff ONLY (RN/MA): No Negative Checker Required: No Do You Feel Safe at Home: Yes Authorities Contacted: N/A PCP or OBGYN visit in last 3 months: Yes Date of Last PCP or OBGYN visit: 07/18/25 Hx Now: Yes Are you currently on any form of Control: No Pain Present Currently: No Pain Scale Used: Verma-Velasquez/Numerical Pain scale:: 0 Smoking Status Smoking Status: Never smoker Immunizations Flu Vaccine in the Last 12 Months: No Flu Vaccine Exclusion Criteria: No Exclusion Criteria Questionnaires Covid-19 Vaccine Questionnaire Has patient been vacinated for Covid-19 Have you been vacinated for Covid-19: Yes PHQ-9 PHQ-2 Over the last 2 weeks, how often have you been bothered by any of the following problems? 1. Little interest or pleasure in doing things: not at all 2. Feeling down, depressed, or hopeless: not at all Total score: 0 PHQ-9 3. Trouble falling or staying asleep, or sleeping too much: Not at all 4. Feeling tired or having little energy: Not at all 5. Poor appetite or overeating: Not at all 6. Feeling bad about yourself - or that you are a failure or have let yourself or your family down: Not at all 7. Trouble concentrating on things, such as reading the newspaper or watching television: Not at all 8. Moving or speaking so slowly that other people could have noticed? - Or the opposite - being so fidgety or restless that you have been moving around a lot more than usual: not at all 9. Thoughts that you would be better off or of hurting yourself in some way: Not at all Total score: 0 If you checked off any problems, how difficult have these problems made it for you to do your work, take care of things at home, or get along with other people?: not difficult at all Source: Developed by Drs. Wiliam Lu, Sofia Sanchez, Jerry Nix and colleagues, with an educational bette from [employer]. 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 Denies any SAB complaints. Patient has an MFM appointment that is pending. Denies nausea and vomiting. No bleeding NIPT and carrier screen today. Will do AFP at 15 weeks. An MFM appointment is pending. Discussed SAB precautions 07/18/25 <del>?</del> 9w 6d 73.539 kg 135/82 10 145 08/04/25 <del>?</del> 12w 2d 76.714 kg 125/82 absent unknown 12 145 absent ER (visit 10/16/25, subchorionic bleed. no bleeding vaginal, back pain. tx with keflex x 7, feeling batter today RhoGAM IM x 1 because of subchorionic bleed. Okay to follow-up on [facility] appointment for ultrasound. Patient will follow-up on her outpatient stat ultrasound because of subchorionic bleeding and pain. Return in 4 weeks OB check. SAB precautions Gyne-Lotrimin x 7 for yeast in the urine, ALBA Calculator Estimated Delivery Date Method Current WG Current Estimate 02/14/26 LMP (Certain) 12w 2d Other Estimates 02/09/26 Ultrasound #1 13w 0d Notes Visit Date: 08/04/25 Last Updated by: Paty Card CNM OB labs: O-/ABS-, rhogam for bleeding 08/04/25, rpr;;nr, rub imm, HBSAG-,hiv-,hc-, gc/ct-, . + UTI: tx with keflex Visit Date: 07/18/25 Last Updated by: Dulce Carolina MD US on 07/17/2025 c/w 10.3 weeks with a subchorionic hematoma of 40 x42 mm no more bleeding now Plan a follow up Ob us / keep Follow up with Paty / Marisela positive on bedside US Call in Keflex for UTI symptoms / restricted activity/ ED precautions / High risk due to subchrionic bleed Visit Date: 07/16/25 Last Updated by: Paty Card CNM 35 yo . LMP: 05/10/25, EDC: 02/14/26 Office Procedures OBC Clinic LOC & Office Proc's Nursing/Assessment Patient Status: Established Patient OB Clinic Nursing Assessment: Medication Reconciliation, Update PMH in EMR and Vital Signs OB Clinic Coordination of Care: Consent,records obtained, informed consent, Education Simp Pt/Fam, Lab and Imaging orders, Results/Orders obtained and Staff clarify orders Special Needs: Heart tones Established Patient Charge Established Patient Point Assignment: 110 Established Patient Point Charge: EP Level 3 (80-115) Injection/Vaccine Admin SQ Im Injection: Yes Office Meds Rhophylac 1,500 unit (300 mcg)/2 mL injection syringe Performing Provider: Paty Card CNM Performing Location: [facility] Administered by: Maria L Ly MA on 08/04/25 13:11 Dose Route Admin Location Dispensed Lot Number Expiration Date Package NDC NDC Flavor Tank Tender 1,500 unit IM RIGHT GLUTE 2 mL [id number] 04/26/27 30914-840-15 [id number] [employer] [facility] Assessment & Plan Diagnosis / Problem List (1) Encounter for supervision of high risk in first trimester, antepartum: Status: Acute (2) Advanced maternal age (AMA) in : Status: Acute (3) Vaginitis: Status: Acute Plan Lotrimin x 7 for yeast in urine. RhoGAM x 1 for subchorionic bleeding. Follow-up with patient for appointment with [facility]. And also sonogram at OB. Discussed SAB precautions. Comfort measures for back pain. Return in 4 weeks OB check Additional Plan Follow Up: 4 Weeks (obc)
== END 2025-08-04 09:17 | disposition home or self-care (01) ==
LOC: HODSOBC 08:36
PROVIDERS: Supervising Provider Advanced Practice Midwife; Visit Provider Advanced Practice Midwife
DX: O09.521 Supervision of elderly multigravida, first trimester (principal); O09.891 Supervision of other high risk pregnancies, first trimester; O20.8 Other hemorrhage in early pregnancy; O23.591 Infection of other part of genital tract in pregnancy, first trimester; N76.0 Acute vaginitis; Z3A.12 12 weeks gestation of pregnancy
CPT/HCPCS: 96372; 99213; J3490; G0463; J2791

== ENCOUNTER → 2025-08-04 | Outpatient (CLI) | payer MEDICAID, SELFPAY ==
--- NOTE | 2025-08-04 | XR_ITS ---
Examination: Complete OB ultrasound, less than 14 weeks, transabdominal Date and time of exam: August 04, 2025, 11:23 a.m. INDICATIONS: Intrauterine gestation with large subchorionic hemorrhage on ultrasound July 17, 2025 Technique: Obstetrical ultrasound images less than 14 weeks performed via transabdominal imaging Findings: A normal shaped single intrauterine gestation is present in the uterus. CRL 6.4 cm corresponds to 12 weeks 5 days gestational age Cardiac motion 164 bpm Right ovary 3.1 cm arterial flow Left ovary 3.1 cm arterial flow 22 mm corpus luteum cyst Ultrasonographic survey of visible and placental structures unremarkable. Amniotic fluid volume appears appropriate for this estimated gestational age. Impression: Viable intrauterine gestation 12 weeks 5 days.
== END | disposition home or self-care (01) ==
PROVIDERS: PCP Family Medicine; Referring Provider Advanced Practice Midwife; Visit Provider Advanced Practice Midwife
DX: O46.8X9 Other antepartum hemorrhage, unspecified trimester (principal); O09.91 Supervision of high risk pregnancy, unspecified, first trimester; Z3A.12 12 weeks gestation of pregnancy
CPT/HCPCS: 76801

== ENCOUNTER 2025-09-10 10:32 | Outpatient (AMB) | payer MEDICAID, SELFPAY ==
[2025-09-10 10:57] VITALS: BP 113/74; PULSE 80; RESP 18; TEMP 36.8; O2SAT 98; BMI 30.9
--- NOTE | 2025-09-10 10:57 | OBCLNT_ITS ---
Vital Signs 09/10/25 10:57 Height 1.57 m Height Method Stated Weight 76.26 kg Weight Measurement Method Standing Scale BMI 30.9 BP 113/74 Blood Pressure Source Automatic Cuff Blood Pressure Location Left Upper Arm Position Sitting Respiration 18 Pulse 80 Pulse Source Monitor Temp 98.2 F Temp Source Oral Pulse Oximetry (%) 98 Oxygen Delivery Method Room Air Allergies/Home Meds Allergies & Medications Allergies No Known Allergies Allergy (Unknown, Verified 09/10/25 11:00) Medication Reconciliation doxylamine 10 mg-pyridoxine (vit B6) 10 mg tablet,delayed release (Diclegis) 1 tab PO BID 30 days #60 tabs 07/03/25 [Rx Confirmed 09/10/25] clotrimazole 1 % vaginal cream (Gyne-Lotrimin 7) 1 appful vaginal QHS #45 grams 08/04/25 [Rx Confirmed 09/10/25] clotrimazole 2 % vaginal cream (Gyne-Lotrimin) 1 appful vaginal QHS 3 days #21 grams 08/08/25 [Rx Confirmed 09/10/25] Immunizations Immunizations Flu Vaccine in the Last 12 Months: No Flu Vaccine Exclusion Criteria: Refused by Patient Care OB Visit Log OB Flowsheet Initial Weight: Not Recorded Date -?-?-?-?-?-?-?-?-?-?-?-?- EGA Weight BP Alb Glu CTX Pres Fundal ht FHR Mov Dilation Station Effacement Hx Notes Visit Note 07/16/25 -?-?-?-?-?-?-?-?-?-?-?-?- 9w 4d 74.389 kg 110/71 absent unknown 10 145 absent OB panel done today. Denies any SAB complaints. Patient has an MFM appointment that is pending. Denies nausea and vomiting. No bleeding NIPT and carrier screen today. Will do AFP at 15 weeks. An MFM appointment is pending. Discussed SAB precautions 07/18/25 -?-?-?-?-?-?-?-?-?-?-?-?- 9w 6d 73.539 kg 135/82 10 145 08/04/25 -?-?-?-?-?-?-?-?-?-?-?-?- 12w 2d 76.714 kg 125/82 absent unknown 12 145 absent ER (visit 07/17/25, subchorionic bleed. no bleeding vaginal, back pain. tx with keflex x 7, feeling batter today RhoGAM IM x 1 be cause of subchorionic bleed. Okay to follow-up on [facility] appointment for ultrasound. Patient will follow-up on her outpatient stat ultrasound because of subchorionic bleeding and pain. Return in 4 weeks OB check. SAB precautions Gyne-Lotrimin x 7 for yeast in the urine, 09/10/25 -?-?-?-?-?-?-?-?-?-?-?-?- 17w 4d 76.26 kg 113/74 absent unknown 17 145 active light movement. f/u sono 10/06/25. no ob complaints,no bleeding AFP. MFM sono 10/06/25. Rhogam at 28 week. discuss ptl precaution, rtc 4 week obc ALBA Calculator Estimated Delivery Date Method Current WG Current Estimate 02/14/26 LMP (Certain) 17w 4d Other Estimates 02/09/26 Ultrasound #1 18w 2d Notes Visit Date: 09/10/25 Last Updated by: Paty Card CNM NIPT-/carrier- Visit Date: 08/04/25 Last Updated by: Paty Card CNM OB labs: O-/ABS-, rhogam for bleeding 08/04/25, rpr;;nr, rub imm, HBSAG-,hiv-,hc-, gc/ct-, /174. + UTI: tx with keflex Visit Date: 07/18/25 Last Updated by: Dulce Carolina MD US on 07/17/2025 c/w 10.3 weeks with a subchorionic hematoma of 40 x42 mm no more bleeding now Plan a follow up Ob us / keep Follow up with Paty / Marisela positive on bedside US Call in Keflex for UTI symptoms / restricted activity/ ED precautions / High risk due to subchrionic bleed Visit Date: 07/16/25 Last Updated by: Paty Card CNM 35 yo . LMP: 05/10/25, EDC: 02/14/26 Office Procedures OBC Clinic LOC & Office Proc's Nursing/Assessment Patient Status: Established Patient OB Clinic Nursing Assessment: Medication Reconciliation, Update PMH in EMR and Vital Signs OB Clinic Coordination of Care: Consent,records obtained, informed consent, Education Simp Pt/Fam, Lab and Imaging orders, Results/Orders obtained and Staff clarify orders Special Needs: Heart tones Established Patient Charge Established Patient Point Assignment: 110 Established Patient Point Charge: EP Level 3 (80-115) Assessment & Plan Diagnosis / Problem List (1) Advanced maternal age (AMA) in : Status: Acute (2) Encounter for supervision of high risk in second trimester, antepartum: Status: Acute Plan labor precautions. Kick appoint with [facility] October 06. aFP today. Return in 4 weeks OB check Additional Plan Follow Up: 4 Weeks (obc)
== END 2025-09-10 11:17 | disposition home or self-care (01) ==
LOC: HODSOBC 10:32
PROVIDERS: PCP Family Medicine; Referring Provider Family Medicine; Supervising Provider Advanced Practice Midwife; Visit Provider Advanced Practice Midwife
DX: O09.522 Supervision of elderly multigravida, second trimester (principal); Z3A.17 17 weeks gestation of pregnancy; Z28.21 Immunization not carried out because of patient refusal
CPT/HCPCS: 99213; G0463